=== PATIENT | male | born 1985 | race Caucasian/White ===

== ENCOUNTER → 2017-06-16 | Outpatient (CLI) | payer OTHER | LOC: COL.VAS 14:43 | DX: S15.20 Unspecified injury of external jugular vein (principal) ==

== ENCOUNTER 2017-10-21 19:28 | Emergency (ER) | payer OTHER ==
[~2017-10-21] VITALS: Ht 182.9 cm; Wt 97.7 kg
[2017-10-21 19:32] VITALS: BP 143/91; TEMP 97.8
[2017-10-21] MEDS ORDERED: PRINIVIL10 MG PO (19:34)
[2017-10-21 20:19] VITALS: PULSE 83
== END 2017-10-21 20:20 | disposition home or self-care (01) ==
LOC: COL.ER 19:28
DX: M54.12 Radiculopathy, cervical region (principal); K30 Functional dyspepsia

== ENCOUNTER 2020-03-01 11:56 | Emergency (ER) | payer BC ==
[~2020-03-01] VITALS: Ht 182.9 cm; Wt 94.5 kg
[~2020-03-01 11:56] MED LIST: PRINIVIL10 MG PO
[2020-03-01 12:08] VITALS: TEMP 97.9
[2020-03-01 13:02] LABS: BASO # 0.1 (0.0-0.2); BASO % 0.5 % (0.0-2.0); EOS # 0.2 (0.0-0.7); EOS % 1.6 % (0-4.0); GRAN # 7.1 (1.4-6.5); GRAN % 77.3 % (42.2-75.2); HEMATOCRIT 49.1 % (42.0-52.0); HEMOGLOBIN 16.5 g/dl (13.5-18.0); LYMPH # 1.3 (1.2-3.4); LYMPH % 13.9 % (20.0-51.0); MEAN CELL VOLUME 88 fl (80.0-100.0); MEAN CORPUSCULAR HEMOGLOBIN 30 pg (27.0-31.0); MEAN CORPUSCULAR HGB CONC 34 g/dl (33.0-37.0); MEAN PLATELET VOLUME 9.6 fl (7.4-10.4); MONO # 0.6 (0.1-0.6); MONO % 6.3 % (1.7-9.3); PLATELET COUNT 226 K/mm3 (130-400); REDCELL DISTRIBUTION WIDTH-CV 12.2 % (11.5-14.5)
[2020-03-01 13:18] LABS: ALBUMIN 4.5 gm/dL (3.5-5.0); C-REACTIVE PROTEIN 0.8 mg/dL (0.0-0.9); CALCIUM 9.4 mg/dL (8.4-10.2); CREATININE, serum 1.03 (0.66-1.25); POTASSIUM 4.5 mmol/L (3.4-5.0); TOTAL PROTEIN 7.9 gm/dL (6.4-8.2)
[2020-03-01 13:48] VITALS: BP 118/87; PULSE 96
== END 2020-03-01 13:50 | disposition home or self-care (01) ==
LOC: COL.ER 11:56
PROVIDERS: Emergency Medicine
DX: R20.0 Anesthesia of skin (principal)

== ENCOUNTER 2020-05-27 19:58 | Emergency (ER) | payer BC ==
[~2020-05-27] VITALS: Ht 180.3 cm; Wt 93.2 kg
[2020-05-27 20:28] VITALS: BP 118/68; PULSE 97; TEMP 97.4
== END 2020-05-27 20:34 | disposition left against medical advice (07) ==
LOC: COL.ER 19:58
DX: T63.481A Toxic effect of venom of other arthropod, accidental (unintentional), initial encounter (principal); Z53.29 Procedure and treatment not carried out because of patient's decision for other reasons

== ENCOUNTER 2020-05-27 21:15 | Emergency (ER) | payer BC ==
[~2020-05-27] VITALS: Ht 180.3 cm; Wt 93.2 kg
[2020-05-27 21:24] VITALS: TEMP 98
[2020-05-27 23:45] VITALS: BP 103/68; PULSE 76
== END 2020-05-28 00:53 | disposition home or self-care (01) ==
LOC: COL.ER 21:15
DX: Z20.3 Contact with and (suspected) exposure to rabies (principal); Z23 Encounter for immunization; I10 Essential (primary) hypertension
CPT/HCPCS: 90375

== ENCOUNTER 2020-06-03 18:37 | Outpatient (RCR) | payer BC ==
[~2020-06-03] VITALS: Ht 180.3 cm; Wt 93.2 kg
[2020-06-10 12:56] VITALS: BP 142/100; PULSE 79; TEMP 97.8
== END 2020-08-28 | disposition home or self-care (01) ==
LOC: COL.ER
DX: Z20.3 Contact with and (suspected) exposure to rabies (principal); Z23 Encounter for immunization

== ENCOUNTER 2020-12-15 14:06 | Emergency (ER) | payer OTHER ==
[~2020-12-15] VITALS: Ht 180.3 cm; Wt 94.1 kg
[2020-12-15 14:21] VITALS: TEMP 98.4
[2020-12-15 15:19] LABS: ALANINE AMINOTRANSFERASE 20 U/L (4-49); ALBUMIN 4.4 gm/dL (3.5-5.0); ALKALINE PHOSPHATASE 61 U/L (50-136); ANION GAP 12 mmol/L (7-16); AST,SGOT 26 U/L (15-37); BILIRUBIN,TOTAL 0.8 mg/dL (0.0-1.0); BLOOD UREA NITROGEN 12 mg/dL (9-20); CALCIUM 8.5 mg/dL (8.4-10.2); CARBON DIOXIDE 24 mmol/L (22-30); CHLORIDE 102 mmol/L (98-107); CREATININE, serum 0.84 (0.66-1.25); GLUCOSE 95 mg/dL (74-106); POTASSIUM 3.9 mmol/L (3.4-5.0); SODIUM 139 mmol/L (137-145); TOTAL PROTEIN 7.3 gm/dL (6.4-8.2)
[2020-12-15 15:26] LABS: BASO % 0.3 % (0.0-2.0); EOS % 0.3 % (0-4.0); GRAN # 2.4 (1.4-6.5); GRAN % 68.3 % (42.2-75.2); HEMATOCRIT 48.8 % (42.0-52.0); HEMOGLOBIN 16.3 g/dl (13.5-18.0); LYMPH # 0.7 (1.2-3.4); LYMPH % 19.7 % (20.0-51.0); MEAN CELL VOLUME 89 fl (80.0-100.0); MEAN CORPUSCULAR HEMOGLOBIN 30 pg (27.0-31.0); MEAN CORPUSCULAR HGB CONC 33 g/dl (33.0-37.0); MEAN PLATELET VOLUME 10.5 fl (7.4-10.4); MONO # 0.4 (0.1-0.6); MONO % 11.1 % (1.7-9.3); PLATELET COUNT 136 K/mm3 (130-400); RED BLOOD COUNT 5.49 M/mm3 (4.20-5.60); REDCELL DISTRIBUTION WIDTH-CV 12.5 % (11.5-14.5)
[2020-12-15 15:35] LABS: TROPONIN-I < 0.012 ng/mL (0.000-0.035)
[2020-12-15 17:58] VITALS: BP 141/93; PULSE 98
== END 2020-12-15 17:40 | disposition home or self-care (01) ==
LOC: COL.ER 14:06
PROVIDERS: Nurse Practitioner Primary Care
DX: U07.1 COVID-19 (principal); R00.0 Tachycardia, unspecified
CPT/HCPCS: J7030